=== PATIENT | female | born 1970 | race Caucasian/White ===

== ENCOUNTER 2016-10-20 11:22 | Inpatient (IN) | payer OTHER ==
[~2016-10-20] VITALS: Ht 160 cm; Wt 72.4 kg
[2016-10-20] MEDS ORDERED: IV NORMAL SALINE 1,000ML 1,000 ML IV SCH (11:43)
[2016-10-20] MEDS ORDERED: HYDROmorphone PF 1 MG/ML DISP.SYRIN IV/SQ PRN (11:45)
[2016-10-20] MEDS ORDERED: 0.9 % SODIUM CHLORIDE 10 ML DISP.SYRIN. IV PRN (11:45)
--- NOTE | 2016-10-20 11:51 | PHYS DOC ---
Past History Past Medical History: No Pertinent History Past Surgical History: Other Additional Past Surgical Histo: surgeries on her foot Smoking: Cigarettes Alcohol Use: Occasionally Drug Use: None Adult General Chief Complaint Chief Complaint: ABDOMINAL PAIN [facility] This is a pleasant 46-year-old female with no major medical problems only prior surgeries on her foot who presents with left cervical quadrant epigastric abdominal pain. She's had episodes like this in the past but this episode that brought her to the hospital today's progressively worse. Typically is described as a sharp stabbing in the left upper or right upper quadrant. She' s been seen before and had an ultrasound of the right upper quadrant and within the last several weeks demonstrated no occult issues with her gallbladder to include cholelithiasis cholecystitis. She does not remember any trauma to her abdomen but the pain is described as sharp and stabbing left upper quadrant with mild radiation to the flank. It is worsened by food, position, breathing and direct pressure of the abdomen. She said this particular episode is a 10 of 10 when it started this morning is now presently a 4 of 10. It is worse when she lays down, worse when she presented. She denies any nausea, vomiting at this time she denies any diarrhea or UTI symptoms. She denies any night sweats, fever, weight loss with this particular episode. Although she has said that weight loss does occur with her prior bouts because she refuses to eat. She denies any headache, chest pain, travel outside the country recently. 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 It isn't immediate experience and she is actually stopped eating because it hurt so much. abdominal pain differential includes but not limited to ectopic , UTI, pyonephritis, cholecystitis, cholelithiasis, pancreatitis, appendicitis, small bowel obstruction, large bowel obstruction, diverticulosis, Diverticulum, intussusception, volvulus, irritable bowel disease, Crohn's or ulcerative colitis,, Review of Systems Review of Systems Constitutional: Denies fever or chills [] Eyes: Denies change in visual acuity, redness, or eye pain [] HENT: Denies nasal congestion or sore throat [] Respiratory: Denies cough or shortness of breath [] Cardiovascular: No additional information not addressed in HPI [] GI: Her main complaint is abdominal pain without nausea vomiting bloody stools or diarrhea. : Denies dysuria or hematuria [] Musculoskeletal: Denies back pain or joint pain [] Integument: Denies rash or skin lesions [] Neurologic: Denies headache, focal weakness or sensory changes [] Endocrine: Denies polyuria or polydipsia [] Current Medications Current Medications Current Medications Medications (Trade) Dose Ordered Sig/Feliberto Start Time Stop Time Status Last Admin Dose Admin Hydromorphone HCl (Dilaudid) 1 mg PRN Q15MIN PRN 10/20/16 11:45 10/21/16 11:44 UNV Ondansetron HCl (Zofran) 4 mg 1X ONCE 10/20/16 11:45 10/20/16 11:46 UNV Sodium Chloride (Normal Saline Flush) 10 ml QSHIFT PRN 10/20/16 11:45 UNV Allergies Allergies Allergies Coded Allergies Type Severity Reaction Last Updated Verified nickel Allergy Unknown 10/20/16 Yes Physical Exam Physical Exam her vital signs been reviewed and within normal limits was been recorded on the chart. Constitutional: Well developed, well nourished, no acute distress, non-toxic appearance. [] HENT: Normocephalic, atraumatic, bilateral external ears normal, oropharynx moist, no oral exudates, nose normal. [] Eyes: PERRLA, EOMI, conjunctiva normal, no discharge. [] Neck: Normal range of motion, no tenderness, supple, no stridor. [] Cardiovascular:Heart rate regular rhythm, no murmur [] Lungs & Thorax: Bilateral breath sounds clear to auscultation [] Abdomen: Tenderness to palpation of the left upper quadrant with some voluntary guarding no rebound or masses. There is no Bradley's or McBurney's or Bradley's point tenderness palpation. No CVA tenderness to palpation as well Skin: Warm, dry, no erythema, no rash. [] Back: No tenderness, Extremities: No tenderness, no cyanosis, no clubbing, ROM intact, no edema. [] Neurologic: Alert and oriented X 3, normal motor function, normal sensory function, no focal deficits noted. [] Psychologic: Affect normal, judgement normal, mood normal. She is mildly anxious Current Patient Data Vital Signs Vital Signs Date Time Temp Pulse Resp B/P (MAP) Pulse Ox O2 Delivery O2 Flow Rate FiO2 8/8/17 11:35 98.2 77 20 99 Room Air Vital Signs Date Time Temp Pulse Resp B/P (MAP) Pulse Ox O2 Delivery O2 Flow Rate FiO2 10/20/16 12:16 20 99 10/20/16 11:35 98.2 77 Room Air EKG EKG [] KG time 12:17 PM serous 10/20/[address] Bustamante demonstrates normal sinus rhythm heart rate of 69 Arrival 188 which is normal QRS width of 80 which is normal QTC 424 to his normal is a normal sinus rhythm normal EKG with no ST segment or T-wave inversions considered with acute cord ischemia there is somewhat low voltage in the inferior leads. Radiology/Procedures Radiology/Procedures [] IMAGING REPORT Signed PATIENT: ROSITA DUNN ACCOUNT: [id number] : 1970 LOCATION: ER AGE: 46 SEX: F EXAM STATUS: REG ER ORD. PHYSICIAN: FRANKLIN BUSTAMANTE MD REASON: upper quadrant abdominal pain PROCEDURE: CT ABD PELV W/ IV CONTRST ONLY CT scan of the abdomen and pelvis with contrast 10/20/2016 Clinical history: Abdominal pain for 3 hours. Technique: After the intravenous administration of 75 cc of Omnipaque 300, contiguous, 5 mm axial sections were obtained through the abdomen and pelvis. One or more of the following individualized dose reduction techniques were utilized for this study: 1. Automated exposure control. 2. Adjustment of the mA and/or kV according to patient size. 3. Use of iterative reconstruction technique. Findings: No previous imaging studies are available for comparison. Images through the lung bases demonstrate minimal dependent subsegmental atelectasis bilaterally. A 2.8 cm low-attenuation lesion is seen involving the dome of the liver which may represent a hepatic cyst or hemangioma. The spleen, pancreas, adrenal glands and kidneys are within normal limits. The abdominal aorta tapers normally. The gallbladder is contracted. No free fluid or free air is seen within the abdomen. There is no evidence of bowel obstruction. The appendix is well visualized and is within normal limits. Images through the pelvis demonstrate the urinary bladder distended with urine. Calcifications are seen within the pelvis consistent with phleboliths. A 2.6 cm oval-shaped heterogeneous area is seen in the left adnexa which may represent a hemorrhagic cyst. No free fluid is seen. Minimal S shaped curvature of the thoracic lumbar spine is noted. Degenerative changes are seen along the lower thoracic and mid and lower lumbar spine. Impression: Probable 2.5 cm hemorrhagic cyst within the left ovary. Course & Med Decision Making Course & Med Decision Making Pertinent Labs and Imaging studies reviewed. (See chart for details) []patient has received pain meds, fluids, and IV has been completed. 12:20 pm patient pain improved only slightly. Patient tells me that their symptoms given during CC are improved. We reviewed labs and radiology reports with patient and any family at bedside. She is still having several pain despite getting antiemetics and pain meds here in the emergency department. CT scan abdomen and pelvis does not reveal any specific bowel inflammation, perforation or diverticulitis. She does have a significant left ovarian cyst. There is no free fluid in the abdomen. We discussed possible disposition home with oral medications or admission to the hospital given how much pain she is in. Because this is a more severe episode should've explains the past she would prefer to be admitted to the hospital. I will make arrangements for outpatient GI evaluation if possible for an EGD. I will this patient admitted to the hospital for antinausea medications fluids and analgesics. She is fine with this plan. my abdominal pain differential includes but not limited to ectopic , UTI, pyonephritis, cholecystitis, cholelithiasis, pancreatitis, appendicitis, small bowel obstruction, large bowel obstruction, diverticulosis, Diverticulum, intussusception, volvulus, irritable bowel disease, Crohn's or ulcerative colitis,, Psychotherapist note: Internal medicine Psychotherapist called at of the service Dr. Narayanan Consult called back at paged at 12:43, returned call at 12:43 Discussed the case I presented and they agreed with admission. Time of acceptance 12:43 Impression: Possible gastric or lower channel ulcer given her propensity of increased pain with food. Disposition: [facility] or the hospital for pain management and possible GI evaluation. Britt Disclaimer Britt Disclaimer This chart was dictated in whole or in part using Voice Recognition software in a busy, high-work load, and often noisy Emergency Department environment. It may contain unintended and wholly unrecognized errors or omissions. Departure Departure: Impression: Primary Impression: Abdominal pain Disposition: ADMITTED INPATIENT Admitting Physician: Toshia Narayanan Condition: GUARDED Referrals: SIMONE PHELPS DO (PCP) FRANKLIN BUSTAMANTE MD Oct 20, 2016 11:51
[2016-10-20] MEDS ORDERED: IOHEXOL 300 MG/ML 75 ML VIAL. IV ONE (12:00)
[2016-10-20] MEDS ORDERED: ONDANSETRON PF 4 MG/2 ML VIAL. IV ONE (12:00)
[2016-10-20 12:01] LABS: BASO # 0.1 x10^3/uL (0.0-0.2); BASO % 1 % (0-3); EOS # 0.3 x10^3/uL (0.0-0.7); EOS % 3 % (0-3); HEMATOCRIT 39.9 % (36.0-47.0); HEMOGLOBIN 13.6 g/dL (12.0-15.5); LYMPH # 2.5 x10^3/uL (1.0-4.8); LYMPH % 29 % (24-48); MEAN CORPUSCULAR HEMOGLOBIN 29 pg (25-35); MEAN CORPUSCULAR HGB CONC 34 g/dL (31-37); MEAN CORPUSCULAR VOLUME 86 fL (79-100); MONO # 0.8 x10^3/uL (0.0-1.1); MONO % 9 % (0-9); NEUT # 5.1 x10^3uL (1.8-7.7); NEUT % 58 % (31-73); PLATELET COUNT 201 x10^3/uL (140-400); RED BLOOD COUNT 4.61 x10^6/uL (3.50-5.40); RED CELL DISTRIBUTION WIDTH 13.2 % (11.5-14.5); WHITE BLOOD COUNT 8.7 x10^3/uL (4.0-11.0)
[2016-10-20 12:15] LABS: ALBUMIN 3.9 g/dL (3.4-5.0); CALCIUM 8.8 mg/dL (8.5-10.1); DIRECT BILIRUBIN 0.1 mg/dL (0.0-0.2); GFR 60.2; POTASSIUM 4.1 mmol/L (3.5-5.1); TOTAL BILIRUBIN 0.3 mg/dL (0.2-1.0); TOTAL PROTEIN 7.1 g/dL (6.4-8.2)
--- NOTE | 2016-10-20 12:28 | RAD ---
CT scan of the abdomen and pelvis with contrast 10/20/2016 Clinical history: Abdominal pain for 3 hours. Technique: After the intravenous administration of 75 cc of Omnipaque 300, contiguous, 5 mm axial sections were obtained through the abdomen and pelvis. One or more of the following individualized dose reduction techniques were utilized for this study: 1. Automated exposure control. 2. Adjustment of the mA and/or kV according to patient size. 3. Use of iterative reconstruction technique. Findings: No previous imaging studies are available for comparison. Images through the lung bases demonstrate minimal dependent subsegmental atelectasis bilaterally. A 2.8 cm low-attenuation lesion is seen involving the dome of the liver which may represent a hepatic cyst or hemangioma. The spleen, pancreas, adrenal glands and kidneys are within normal limits. The abdominal aorta tapers normally. The gallbladder is contracted. No free fluid or free air is seen within the abdomen. There is no evidence of bowel obstruction. The appendix is well visualized and is within normal limits. Images through the pelvis demonstrate the urinary bladder distended with urine. Calcifications are seen within the pelvis consistent with phleboliths. A 2.6 cm oval-shaped heterogeneous area is seen in the left adnexa which may represent a hemorrhagic cyst. No free fluid is seen. Minimal S shaped curvature of the thoracic lumbar spine is noted. Degenerative changes are seen along the lower thoracic and mid and lower lumbar spine. Impression: Probable 2.5 cm hemorrhagic cyst within the left ovary.
[2016-10-20] MEDS ORDERED: PANTOPRAZOLE IV PUSH 40 MG VIAL. IVP ONE (13:00)
[2016-10-20] MEDS ORDERED: LIDO:MAALOX 1:1 20 ML SINGLE DOSE PO ONE (13:00)
[2016-10-20 13:09] LABS: CLARITY,URINE CLEAR; COLOR,URINE STRAW; GLUCOSE,URINE NEG (NEG)
[2016-10-20 13:10] LABS: BACTERIA,URINE 0 /HPF (0-FEW); BILIRUBIN,URINE NEG (NEG); NITRITE,URINE NEG (NEG); RBC,URINE 0 /HPF (0-2); SQUAMOUS EPITHELIAL CELL,UR OCC /LPF; UROBILINOGEN,URINE 0.2 mg/dL (0.2 mg/dL); WBC,URINE 0 /HPF (0-4)
--- NOTE | 2016-10-20 13:27 | EKG ---
[address] [address] Test Date: 2016-10-20 Test Time: 12:17:35 Pat Name: ROSITA DUNN Department: Room: 105 A Gender: F Life Specialist: SRI : 1970 Requested By: FRANKLIN BUSTAMANTE Order Number: [id number] Reading MD: Yrn West Measurements Intervals [place] Rate: 69 P: 52 TN: 188 QRS: 59 QRSD: 80 T: 31 QT: 394 QTc: 424 Interpretive Statements SINUS RHYTHM LOW LIMB LEAD VOLTAGE RI6.01 Unconfirmed report No previous ECG available for comparison Electronically Signed On 10-26-2016 9:30:38 CDT by Yrn West
[2016-10-20] MEDS: fentaNYL PF 100 MCG/2 ML VIAL IV PRN ×3 (13:51→21:55)
[2016-10-20 13:54] VITALS: BP 131/75
[2016-10-20 14:17] VITALS: BP 131/75
[2016-10-20] MEDS: ONDANSETRON PF 4 MG/2 ML VIAL. IV PRN ×2 (14:31→21:55)
[2016-10-20] MEDS: IV NORMAL SALINE 1,000ML 1,000 ML IV SCH ×2 (14:38→20:20)
[2016-10-20] MEDS ORDERED: PROMETHAZINE 12.5 MG in IV NORMAL SALINE 50ML 50 ML IV PRN (16:30)
[2016-10-20] MEDS ORDERED: methylPREDNISolone SOD SUCC PF 40 MG/ML VIAL. IV ONE (16:45)
[2016-10-20] MEDS ORDERED: DICY10CA53 PO (17:52)
[2016-10-20] MEDS ORDERED: METH18TA5 PO (17:52)
[2016-10-20] MEDS ORDERED: MONT10TA9 PO (17:52)
[2016-10-20 18:56] VITALS: BP 103/62
[2016-10-20] MEDS: PANTOPRAZOLE IV PUSH 40 MG VIAL. IVP SCH (20:20)
[2016-10-20] MEDS ORDERED: MONTELUKAST 10 MG TABLET. PO SCH (21:00)
[2016-10-20 22:51] VITALS: BP 91/50
--- NOTE | 2016-10-21 01:16 | ACF ---
Admission Criteria Forms ABDOMINAL PAIN Clinical Indications for Admission to Inpatient Care (Place 'X' for any and all applicable criteria): Admission is indicated for ANY ONE of the following(1)(2)(3)(4)(5): [X]I. Inpatient admission required rather than observation care (Also use Abdominal Pain: Observation Care, as appropriate) because of ANY ONE of the following: [X]a) Severe pain requiring acute inpatient management [ ]b) Identification of etiology/finding that requires inpatient care (eg, aortic dissection, free air) [ ]c) Absent bowel sounds with complete ileus(6) [ ]d) Suspected toxic megacolon [ ]e) Severe electrolyte abnormalities requiring inpatient care [ ]f) High fever or infection requiring inpatient admission as indicated by ANY ONE of following(7)(8): [ ] i) Appropriate outpatient or observational care antimicrobial treatment unavailable, not effective, or not feasible [ ] ii) Documented bacteremia [ ] iii) Temperature > 104.9 degrees F (oral) [ ] iv) T >103.1 F (oral) or < 96.8 F(rectal) that does not respond to all emergency treatment measures [ ]g) Signs of intestinal obstruction [B] [ ]h) Hemodynamic instability [ ]i) IV fluid to replace significant ongoing losses (greater than 3 L/m2 per day) (12)(13) [ ]j) Percutaneous or open drainage (eg, abscess, biliary tract ) procedures [ ]k) Parenteral nutrition regimen that must be implemented on inpatient basis [ ]l) Other condition,treatment or monitoring requiring inpatient admission. [ ]II. Peritoneal signs present [ ]III. Surgery needed that cannot be performed on an ambulatory basis. [ ]IV. Evaluation requires patient to not eat or drink for extended period ( eg, more than 24 hours). [ ]V. Contraindications and/or Inappropriate clinical situations for Observational Care in patients with abdominal pain, when ANY ONE of the following is required: [ ]a) Thorough evaluation is required to prevent catastrophic events due to delays in diagnosing (e.g.Mesenteric ischemia) 1,3 [ ]b) Patient with severe pathology or with chronic symptoms unlikely to improve in the ED stay (3) [ ]. General contraindications and/or Inappropriate clinical situations for Observational Care in patients with abdominal pain, when ANY ONE of the following is required: [ ]a) Prediction of prolongation of LOS based on ANY ONE of the following may be considered as a contraindication for observational care 2, 3, 4, 5, 6, 7, 8, 9, 10, 11 [ ]i) Age > 65 yrs. [ ]ii) Patient arriving by ambulance [ ]iii) Patient with high acuity [ ]iv) Patient requiring vital sign monitoring [ ]v) Patient on IV medication [ ]b) Systolic blood pressures 180mmHg 3,12 [ ]c) Patient with altered mental status including delirium and other alteration of consciousness, (3) [ ]d) Patient whose discharge disposition will be to a fdc home or rehabilitation home should not be managed in Emergency Department Observation Unit. CMS rule requires 3 days hospital stay before such placement.3,13 [ ]e) Patient with failure to thrive due to broad array of etiologies 3,16,17 [ ]f) Inability to ambulate 3,14 Extended stay beyond goal length of stay may be needed for(2)(3): [ ]a) Persistent abdominal pain with suspected intra-abdominal process [ ]b) Diagnosed condition requiring continued stay (e.g., pancreatitis, complicated diverticulitis) [ ]c) Surgery (e.g., colectomy) The original [facility] content created by [employer] has been revised. The portions of the content which have been revised are identified through the use of italic text or in bold, and [facility] has neither reviewed nor approved the modified material.All other unmodified content is copyright [facility] [facility]. Please see references footnoted in the original [facility] [facility] edition 2016 Admission Criteria Met?: Yes CHELY MARTINEZ Oct 21, 2016 01:16
[2016-10-21] MEDS: IV NORMAL SALINE 1,000ML 1,000 ML IV SCH (04:33)
[2016-10-21] MEDS: ONDANSETRON PF 4 MG/2 ML VIAL. IV PRN ×2 (06:18→08:49)
[2016-10-21] MEDS: fentaNYL PF 100 MCG/2 ML VIAL IV PRN (06:19)
[2016-10-21 06:20] VITALS: BP 100/56
[2016-10-21 06:31] LABS: BASO % 0 % (0-3); EOS % 0 % (0-3); HEMATOCRIT 35.9 % (36.0-47.0); HEMOGLOBIN 12.1 g/dL (12.0-15.5); LYMPH # 0.9 x10^3/uL (1.0-4.8); LYMPH % 8 % (24-48); MEAN CORPUSCULAR HEMOGLOBIN 29 pg (25-35); MEAN CORPUSCULAR HGB CONC 34 g/dL (31-37); MEAN CORPUSCULAR VOLUME 87 fL (79-100); MONO # 0.3 x10^3/uL (0.0-1.1); MONO % 3 % (0-9); NEUT # 10.5 x10^3uL (1.8-7.7); NEUT % 89 % (31-73); PLATELET COUNT 182 x10^3/uL (140-400); RED BLOOD COUNT 4.12 x10^6/uL (3.50-5.40); RED CELL DISTRIBUTION WIDTH 13.1 % (11.5-14.5); WHITE BLOOD COUNT 11.7 x10^3/uL (4.0-11.0)
[2016-10-21 06:46] LABS: ALBUMIN 3.1 g/dL (3.4-5.0); ALBUMIN/GLOBULIN RATIO 1.1 (1.0-1.7); CREATININE 0.9 mg/dL (0.6-1.0); POTASSIUM 4.5 mmol/L (3.5-5.1); TOTAL BILIRUBIN 0.3 mg/dL (0.2-1.0)
[2016-10-21] MEDS: PANTOPRAZOLE IV PUSH 40 MG VIAL. IVP SCH (09:00)
--- NOTE | 2016-10-21 09:13 | HP ---
ADMIT DATE: 10/20/2016 REASON FOR ADMISSION: Acute abdominal pain visit. 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 She was in a meeting, which she states with 1200 others shoulders and developed acute pain in the left upper quadrant. There were no appointments available at [place] and she was seen in Urgent Care at [place] was sent over to the Emergency Room. She denies any type of triggers as far as today goes. This has occurred before and had not had any type of workup. She has been told in the past that she may have irritable, that it is menopause and other things. She is concerned that it may be some type of inflammatory bowel disease. It does particularly get worse with food and so does not eat at the times that she has had this pain. She has tried vitamins and probiotics. She has also had intermittently bloody stools. PAST MEDICAL HISTORY: ADD and some allergic-type issues. MEDICATIONS: Singulair and Concerta. Also has tried in the past, Bentyl, Mobic, Prilosec for this problem has not particularly helped. ALLERGIES: NICKEL. PAST SURGICAL HISTORY: Four to give foot surgeries, left wrist surgery. FAMILY HISTORY: Lung cancer, kidney cancer and heart attacks. HABITS: Smokes 3-5 cigarettes a day, but also goes days without smoking, drinks 1 cup of coffee a day, occasional alcohol. SOCIAL HISTORY: She is single. She has had deployment to [place] and [place]. She was exposed to some chemicals hazards in [place], but does not relate this problem with that. She is , has 3 children. REVIEW OF SYSTEMS: Does report some intermittent ulcerations in her mouth and around the anus, also intermittent abdominal pain, itching all over her body. No shortness of breath, no fever, no sore throat. No pelvic issues. Denies discharge. Positive for loose bloody stools at times. OBJECTIVE: VITAL SIGNS: Blood pressure is 131/75, temperature 97.7, pulse 67, respirations 20, O2 sat is 98% on room air. GENERAL: A 46-year-old in no acute distress. Also, height 63 inches, weight 159.56 pounds. The patient's hearing is normal. HEENT: Her eyes are clear. Nose is patent. Throat was clear. Could not appreciate any type of aphthous ulcers. LUNGS: Clear to auscultation. CARDIOVASCULAR: Regular rhythm and rate. ABDOMEN: Soft, bowel sounds are positive. She has exquisite deep tenderness to the slight left of the mid epigastric area. No masses were palpated. EXTREMITIES: Without edema. SKIN: Could not appreciate rashes. She does have a couple little scratches around the anal area and some dormant external hemorrhoids, but nothing of consequence. CT of the abdomen is negative except for 2.5 cyst within the left ovary. Gallbladder, pancreas appendix, adrenal glands, kidneys all appear normal. LABORATORY DATA: Initial blood work, CBC normal. Sed rate normal. Vitamin D is only 26. Troponins negative. Initial CMP is negative. C-reactive protein is normal. Urine negative. HCG negative. ASSESSMENT: 1. Abdominal pain, unknown etiology. I have to consider gastric or duodenal ulcers. 2. History of bloody stools. 3. Attention deficit disorder. 4. Appointment in [place]. PLAN: Upper GI with small bowel followthrough and make arrangements for an endoscopy as well as colonoscopy. We will go ahead and give first a low dose of steroids and a proton pump inhibitor and she is on pain medication. SKYLAR OSBORN DO DR: EMILY/chito JOB#: [id number] / [id number]
[2016-10-21] MEDS ORDERED: MORPHINE SULFATE 2 MG/ML DISP.SYRIN. IV ONE (10:15)
--- NOTE | 2016-10-21 13:17 | RAD ---
Double contrast upper GI study to include a small bowel follow-through study 10/21/2016 Clinical history: Persistent mid epigastric and left upper quadrant abdominal pain. Technique: A double contrast upper GI study was performed under fluoroscopic control. This was continued as a small bowel follow-through study which was performed under radiographic and intermittent fluoroscopic control. The total fluoroscopic time for both studies is 3.6 minutes. 19 digital spot radiographs were obtained. Findings: Comparison is made to patient's CT scan of abdomen and pelvis dated 10/20/2016. An AP digital radiograph of the abdomen/pelvis was obtained as a gear shaper. This demonstrates a nonobstructive bowel gas pattern. A moderate amount stool is seen throughout the colon. Calcifications are seen within the pelvis consistent with phleboliths. Degenerative changes are seen involving the mid and lower lumbar spine. The mucosal pattern of the esophagus, stomach and duodenum is within normal limits. Esophageal motility is within normal limits. There is a very small sliding hiatal hernia. [id number] gastroesophageal reflux is seen to the level of the mid thoracic esophagus. The mucosal pattern of the duodenum, jejunum, ileum and terminal ileum is within normal limits. The cecum is in its normal location within the right lower quadrant of the abdomen. The small bowel transit time is within normal limits. No extrinsic mass effect upon the small bowel is seen. Impression: 1. Small sliding hiatal hernia. Mild to moderate gastroesophageal reflux. 2. Otherwise negative study.
[2016-10-21 13:35] VITALS: BP 114/69
[2016-10-21] MEDS ORDERED: PANT40TA3 PO (13:41)
--- NOTE | 2016-10-21 16:35 | PDOC3 ---
Discharge Summary Visit Information Date of Admission: Oct 20, 2016 Date of Discharge: Oct 21, 2016 Final Diagnosis Problems Medical Problems: (1) Abdominal pain Status: Acute . Abdominal pain, unknown etiology. 2. History of bloody stools. 3. Attention deficit disorder. 4. History of deployment in [place] and [place]. 5. GERD 6.hiatal hernia 7. vitamin D deficiency Problems: Brief Hospital Course Allergies Allergies Coded Allergies Type Severity Reaction Last Updated Verified nickel Allergy Unknown 10/20/16 Yes Vital Signs Vital Signs Date Time Temp Pulse Resp B/P (MAP) Pulse Ox O2 Delivery O2 Flow Rate FiO2 10/21/16 13:35 97.7 66 20 114/69 (84) 99 Room Air 10/20/16 14:17 98.0 Lab Results Laboratory Tests Test 10/20/16 11:48 10/20/16 12:48 10/20/16 12:58 10/20/16 16:35 White Blood Count 8.7 x10^3/uL (4.0-11.0) Red Blood Count 4.61 x10^6/uL (3.50-5.40) Hemoglobin 13.6 g/dL (12.0-15.5) Hematocrit 39.9 % (36.0-47.0) Mean Corpuscular Volume 86 fL (79-100) Mean Corpuscular Hemoglobin 29 pg (25-35) Mean Corpuscular Hemoglobin Concent 34 g/dL (31-37) Red Cell Distribution Width 13.2 % (11.5-14.5) Platelet Count 201 x10^3/uL (140-400) Neutrophils (%) (Auto) 58 % (31-73) Lymphocytes (%) (Auto) 29 % (24-48) Monocytes (%) (Auto) 9 % (0-9) Eosinophils (%) (Auto) 3 % (0-3) Basophils (%) (Auto) 1 % (0-3) Neutrophils # (Auto) 5.1 x10^3uL (1.8-7.7) Lymphocytes # (Auto) 2.5 x10^3/uL (1.0-4.8) Monocytes # (Auto) 0.8 x10^3/uL (0.0-1.1) Eosinophils # (Auto) 0.3 x10^3/uL (0.0-0.7) Basophils # (Auto) 0.1 x10^3/uL (0.0-0.2) Sodium Level 140 mmol/L (136-145) Potassium Level 4.1 mmol/L (3.5-5.1) Chloride Level 105 mmol/L (98-107) Carbon Dioxide Level 28 mmol/L (21-32) Anion Gap 7 (6-14) Blood Urea Nitrogen 18 mg/dL (7-20) Creatinine 1.0 mg/dL (0.6-1.0) Estimated GFR (Cockcroft-Gault) 60.2 Glucose Level 91 mg/dL (70-99) Calcium Level 8.8 mg/dL (8.5-10.1) Total Bilirubin 0.3 mg/dL (0.2-1.0) Direct Bilirubin 0.1 mg/dL (0.0-0.2) Aspartate Amino Transf (AST/SGOT) 29 U/L (15-37) Alanine Aminotransferase (ALT/SGPT) 21 U/L (14-59) Alkaline Phosphatase 56 U/L (46-116) Troponin I Quantitative < 0.017 ng/mL (0-0.055) Total Protein 7.1 g/dL (6.4-8.2) Albumin 3.9 g/dL (3.4-5.0) Lipase 270 U/L (73-393) Urine Collection Type Unknown Urine Color Straw Urine Clarity Clear Urine pH 7.5 Urine Specific [place] 1.010 Urine Protein Neg (NEG-TRACE) Urine Glucose (UA) Neg mg/dL (NEG) Urine Ketones (Stick) Neg mg/dL (NEG) Urine Blood Neg (NEG) Urine Nitrite Neg (NEG) Urine Bilirubin Neg (NEG) Urine Urobilinogen Dipstick 0.2 mg/dL (0.2 mg/dL) Urine Leukocyte Esterase Neg (NEG) Urine RBC 0 /HPF (0-2) Urine WBC 0 /HPF (0-4) Urine Squamous Epithelial Cells Occ /LPF Urine Bacteria 0 /HPF (0-FEW) Bedside Urine HCG, Qualitative hcg negative (Negative) Erythrocyte Sedimentation Rate 3 (0-25) Iron Level 62 ug/dL (50-170) Total Iron Binding Capacity 303 ug/dL (250-450) Iron Saturation 20 % (15-34) Ferritin 25 ng/mL (8-252) C-Reactive Protein 0.6 mg/L (0-3.3) Vitamin B12 Level 622 pg/mL (247-911) 25-Hydroxy Vitamin D Total 26.0 ng/mL (30.0-100.0) Thyroid Stimulating Hormone (TSH) 1.435 uIU/mL (0.358-3.740) Test 10/21/16 06:11 White Blood Count 11.7 x10^3/uL (4.0-11.0) Red Blood Count 4.12 x10^6/uL (3.50-5.40) Hemoglobin 12.1 g/dL (12.0-15.5) Hematocrit 35.9 % (36.0-47.0) Mean Corpuscular Volume 87 fL (79-100) Mean Corpuscular Hemoglobin 29 pg (25-35) Mean Corpuscular Hemoglobin Concent 34 g/dL (31-37) Red Cell Distribution Width 13.1 % (11.5-14.5) Platelet Count 182 x10^3/uL (140-400) Neutrophils (%) (Auto) 89 % (31-73) Lymphocytes (%) (Auto) 8 % (24-48) Monocytes (%) (Auto) 3 % (0-9) Eosinophils (%) (Auto) 0 % (0-3) Basophils (%) (Auto) 0 % (0-3) Neutrophils # (Auto) 10.5 x10^3uL (1.8-7.7) Lymphocytes # (Auto) 0.9 x10^3/uL (1.0-4.8) Monocytes # (Auto) 0.3 x10^3/uL (0.0-1.1) Eosinophils # (Auto) 0.0 x10^3/uL (0.0-0.7) Basophils # (Auto) 0.0 x10^3/uL (0.0-0.2) Sodium Level 142 mmol/L (136-145) Potassium Level 4.5 mmol/L (3.5-5.1) Chloride Level 111 mmol/L (98-107) Carbon Dioxide Level 25 mmol/L (21-32) Anion Gap 6 (6-14) Blood Urea Nitrogen 11 mg/dL (7-20) Creatinine 0.9 mg/dL (0.6-1.0) Estimated GFR (Cockcroft-Gault) 68.0 BUN/Creatinine Ratio 12 (6-20) Glucose Level 143 mg/dL (70-99) Calcium Level 8.0 mg/dL (8.5-10.1) Total Bilirubin 0.3 mg/dL (0.2-1.0) Aspartate Amino Transf (AST/SGOT) 22 U/L (15-37) Alanine Aminotransferase (ALT/SGPT) 18 U/L (14-59) Alkaline Phosphatase 47 U/L (46-116) Total Protein 6.0 g/dL (6.4-8.2) Albumin 3.1 g/dL (3.4-5.0) Albumin/Globulin Ratio 1.1 (1.0-1.7) Brief Hospital Course Ms. Thomson is a 46 old ACTIVE [employer] WHO PRESENTED TO THE ER WITH SEVERE ABDOMINAL PAIN, LEFT UPPER QUADRANT WITH ASSOCIATED NAUSEA. SHE HAD AN UGI WITH SBFT SHOWING A SMALL HIATAL HERNIA AND GERD AND MODERATE STOOL. SHE WAS TREATED WITH PAIN MEDICATION AND PROTONIX AND ZOFRAN. BLOOD WORK-UP WAS NEGATIVE EXCEPT FOR VITAMIN D DEFICIENCY.SHE WILL STILL NEED AN EGD AND A COLONOSCOPY AN OUTPATIENT. SHE WAS SENT HOME ON ZOFRAN, PROTONIX AND HYDROCODONE 5/325 # 45. Discharge Information Condition at Discharge: Improved Disposition/Orders: D/C to Home Dischare Medications Current Medications Hydromorphone HCl (Dilaudid) 1 mg PRN Q15MIN PRN IV/SQ PAIN GREATER THAN 3/10 Last administered on 10/20/16 12:16; Start 10/20/16 at 11:45; Stop 10/21/16 at 11: 44; Status DC Sodium Chloride 1,000 ml @ 1,000 mls/hr Q1H IV Last administered on 10/20/16 12:14; Start 10/20/16 at 11:43; Stop 10/20/16 at 12:42; Status DC Sodium Chloride (Normal Saline Flush) 10 ml QSHIFT PRN IV AFTER MEDS AND BLOOD DRAWS Last administered on 10/20/16 12:17; Start 10/20/16 at 11:45; Stop 10/21/16 at 14:49; Status DC Ondansetron HCl (Zofran) 4 mg 1X ONCE IV Last administered on 10/20/16 12:15; Start 10/20/16 at 12:00; Stop 10/20/16 at 12:01; Status DC Iohexol (Omnipaque 300 Mg/ml) 75 ml 1X ONCE IV Last administered on 10/20/16 11:57; Start 10/20/16 at 12:00; Stop 10/20/16 at 12:01; Status DC Ondansetron HCl (Zofran) 4 mg PRN Q4HRS PRN IV NAUSEA/VOMITING Last administered on 10/21/16 08:49; Start 10/20/16 at 13:00; Stop 10/21/16 at 12:59; Status DC Fentanyl Citrate (Fentanyl 2ml Vial) 50 mcg PRN Q1HR PRN IV PAIN Last administered on 10/21/16 06:19; Start 10/20/16 at 13:00; Stop 10/21/16 at 12:59; Status DC Sodium Chloride 1,000 ml @ 125 mls/hr Q8H IV Last administered on 10/21/16 04: 33; Start 10/20/16 at 12:50; Stop 10/21/16 at 12:49; Status DC Pantoprazole Sodium (Protonix Vial) 40 mg 1X ONCE IVP Last administered on 10/20 13:15; Start 10/20/16 at 13:00; Stop 10/20/16 at 13:01; Status DC Multi-Ingredient Mouthwash/Gargle (Gi Cocktail) 20 ml 1X ONCE PO Last administered on 10/20/16 13:00; Start 10/20/16 at 13:00; Stop 10/20/16 at 13:01; Status DC Promethazine HCl 12.5 mg/Sodium Chloride 50.5 ml @ 101 mls/hr PRN Q6HRS PRN IV NAUSEA/VOMITING Last administered on 10/20/16 17:02; Start 10/20/16 at 16:30; Stop 10/21/16 at 14:49; Status DC Methylprednisolone Sodium Succinate (SOLU-Medrol 40MG VIAL) 60 mg 1X ONCE IV Last administered on 10/20/16 17:03; Start 10/20/16 at 16:45; Stop 10/20/16 at 16: 47; Status DC Pantoprazole Sodium (Protonix Vial) 40 mg BID IVP Last administered on 09:00; Start 10/20/16 at 21:00; Stop 10/21/16 at 14:49; Status DC Montelukast Sodium (Singulair) 10 mg HS PO Last administered on 10/20/16 20:20 ; Start 10/20/16 at 21:00; Stop 10/21/16 at 14:49; Status DC Morphine Sulfate (Morphine 2mg Syringe) 2 mg 1X ONCE IV Last administered on 10:11; Start 10/21/16 at 10:15; Stop 10/21/16 at 10:16; Status DC Active Scripts Active Protonix (Pantoprazole Sodium) 40 Mg Tablet.dr 1 Tab PO DAILY Reported Bentyl (Dicyclomine Hcl) 10 Mg Capsule 1 Cap PO TID PRN Concerta (Methylphenidate Hcl) 18 Mg Tab.er.24 1 Tab PO DAILY Montelukast Sodium Tablet (Montelukast Sodium) 10 Mg Tablet 1 Tab PO HS Patient Instructions Patient Instuctions PLEASE KEEP GI APPOINTMENT. MONITOR PAIN AND ANYTHING ASSOCIATED WITH IT . SMALL FREQUENT MEALS. DON'T EAT LATE AT NIGHT. SKYLAR OSBORN DO Oct 21, 2016 16:35
== END 2016-10-21 14:45 | disposition home or self-care (01) | DRG 392 ==
LOC: ER 11:22 → 1 SOUTH 13:14 → OBSVTOIN 15:08
PROVIDERS: ADMIT Family Medicine; ATTEND Family Medicine
DX: R10.12 Left upper quadrant pain (principal); E55.9 Vitamin D deficiency, unspecified; K21.9 Gastro-esophageal reflux disease without esophagitis; K44.9 Diaphragmatic hernia without obstruction or gangrene; F17.210 Nicotine dependence, cigarettes, uncomplicated; N83.202 Unspecified ovarian cyst, left side; Z80.1 Family history of malignant neoplasm of trachea, bronchus and lung; Z80.51 Family history of malignant neoplasm of kidney; Z82.49 Family history of ischemic heart disease and other diseases of the circulatory system; Z88.8 Allergy status to other drugs, medicaments and biological substances
CPT/HCPCS: 36415; 74177; 74249; 80048; 80053; 80076; 81001; 81025; 82306; 82607; 82728; 83540; 83550; 83690; 84443; 84484; 85027; 85651; 86140; 86677; 93005; 96361; 96374; 96375; 99406; C9113; G0378; G0379; J1170; J2270; J2405; J2550; J2920; J3010; Q9967; 99285-25; J7030

== ENCOUNTER 2016-11-12 10:52 | Emergency (ER) | payer OTHER ==
[~2016-11-12] VITALS: Ht 165.1 cm; Wt 70.3 kg
[~2016-11-12 10:52] MED LIST: DICY10CA53 PO; METH18TA5 PO; MONT10TA9 PO; PANT40TA3 PO
[2016-11-12 11:24] LABS: BASO # 0.1 x10^3/uL (0.0-0.2); BASO % 1 % (0-3); EOS # 0.4 x10^3/uL (0.0-0.7); EOS % 5 % (0-3); HEMATOCRIT 39.5 % (36.0-47.0); HEMOGLOBIN 13.3 g/dL (12.0-15.5); LYMPH # 2.4 x10^3/uL (1.0-4.8); LYMPH % 30 % (24-48); MEAN CORPUSCULAR HEMOGLOBIN 29 pg (25-35); MEAN CORPUSCULAR HGB CONC 34 g/dL (31-37); MEAN CORPUSCULAR VOLUME 86 fL (79-100); MONO # 0.8 x10^3/uL (0.0-1.1); MONO % 10 % (0-9); NEUT # 4.2 x10^3uL (1.8-7.7); NEUT % 54 % (31-73); PLATELET COUNT 228 x10^3/uL (140-400); WHITE BLOOD COUNT 7.8 x10^3/uL (4.0-11.0)
[2016-11-12 11:34] LABS: ALBUMIN 3.8 g/dL (3.4-5.0); ALBUMIN/GLOBULIN RATIO 1.3 (1.0-1.7); CALCIUM 8.7 mg/dL (8.5-10.1); CREATININE 0.9 mg/dL (0.6-1.0); POTASSIUM 4.1 mmol/L (3.5-5.1); PREG TEST PT QUAL NEGATIVE (NEG); TOTAL BILIRUBIN 0.5 mg/dL (0.2-1.0); TOTAL PROTEIN 6.8 g/dL (6.4-8.2)
[2016-11-12] MEDS ORDERED: IV NORMAL SALINE 50ML 50 ML ONE (11:39)
[2016-11-12] MEDS ORDERED: PROMETHAZINE 25 MG/ML VIAL IV ONE (11:40)
[2016-11-12] MEDS ORDERED: FAMOTIDINE 20 MG/2 ML VIAL IVP ONE (11:45)
[2016-11-12] MEDS ORDERED: MORPHINE SULFATE 4 MG/ML DISP.SYRIN. IV ONE (11:45)
[2016-11-12] MEDS ORDERED: IV NORMAL SALINE 1,000ML 1,000 ML IV ONE (11:45)
[2016-11-12] MEDS ORDERED: IOHEXOL 300 MG/ML 75 ML VIAL. IV ONE (11:45)
[2016-11-12] MEDS ORDERED: PROMETHAZINE 12.5 MG in IV NORMAL SALINE 50ML 50 ML IV ONE (12:00)
--- NOTE | 2016-11-12 12:04 | ED.ADGEN ---
Past History Past Medical History: No Pertinent History Past Surgical History: Other Additional Past Surgical Histo: surgeries on her foot Smoking: Cigarettes Alcohol Use: None Drug Use: None Adult General Chief Complaint Chief Complaint Rectal bleeding HPI HPI Patient is a 46-year-old female with history of epigastric pain, peptic ulcer disease, hiatal hernia who presents with lower abdominal pain and cramping with bright red rectal bleeding. Symptom onset was approximately 3 hours prior to ED arrival. Patient reports lower abdominal cramping preceding S and bright red blood with clots per rectum. Patient states this was not mixed with stool. She denies dizziness lightheadedness palpitations, shortness of breath and upper abdominal pain. Patient has history of hemorrhoids but states this is different. Patient is not on anticoagulation or NSAIDs. No prior abdominal surgery. No other acute symptoms or complaints. The patient was scheduled for an EGD this afternoon, but did have to cancel due to her current symptoms. Patient is currently on a course of antibiotics for treatment of H. pylori [place] Review of Systems Review of Systems ROS as per HPI. Current Medications Current Medications Current Medications Medications (Trade) Dose Ordered Sig/Feliberto Start Time Stop Time Status Last Admin Dose Admin Famotidine (Pepcid) 20 mg 1X ONCE 11/12/16 11:45 11/12/16 11:46 DC 11/12/16 11:36 20 MG Iohexol (Omnipaque 300 Mg/ml) 75 ml 1X ONCE 11/12/16 11:45 11/12/16 11:46 DC 11/12/16 12:05 75 ML Morphine Sulfate (Morphine 4mg Syringe) 4 mg 1X ONCE 11/12/16 11:45 11/12/16 11:46 DC 11/12/16 11:45 4 MG Promethazine HCl (Phenergan) 25 mg STK-MED ONCE 11/12/16 11:40 11/12/16 11:41 DC Promethazine HCl 12.5 mg/Sodium Chloride 50.5 ml @ 101 mls/hr 1X ONCE 11/12/16 12:00 11/12/16 12:29 DC 11/12/16 11:46 101 MLS/HR Sodium Chloride 50 ml @ As Directed STK-MED ONCE 11/12/16 11:39 11/12/16 11:40 DC Allergies Allergies Allergies Coded Allergies Type Severity Reaction Last Updated Verified nickel Allergy Unknown 10/20/16 Yes Physical Exam Physical Exam Constitutional: Well developed, well nourished, no acute distress, non-toxic appearance. [] HENT: Normocephalic, atraumatic, bilateral external ears normal, oropharynx moist, no oral exudates, nose normal. [] Eyes: PERRLA, EOMI, conjunctiva normal, no discharge. [] Neck: Normal range of motion, no tenderness, supple, no stridor. [] Cardiovascular:Heart rate regular rhythm, no murmur [] Lungs & Thorax: Bilateral breath sounds clear to auscultation [] Abdomen: Bowel sounds normal, soft, or abdominal pain, increased bowel sounds. [ ] Skin: Warm, dry, no erythema, no rash. [] Back: No tenderness, no CVA tenderness. [] Extremities: No tenderness, no cyanosis, no clubbing, ROM intact, no edema. [] Neurologic: Alert and oriented X 3, normal motor function, normal sensory function, no focal deficits noted. [] Psychologic: Affect normal, judgement normal, mood normal. [] Current Patient Data Vital Signs Vital Signs Date Time Temp Pulse Resp B/P (MAP) Pulse Ox O2 Delivery O2 Flow Rate FiO2 11/12/16 13:37 97.9 64 18 120/70 (87) 99 Room Air Lab Results Laboratory Tests Test 11/12/16 11:09 White Blood Count 7.8 x10^3/uL (4.0-11.0) Red Blood Count 4.60 x10^6/uL (3.50-5.40) Hemoglobin 13.3 g/dL (12.0-15.5) Hematocrit 39.5 % (36.0-47.0) Mean Corpuscular Volume 86 fL (79-100) Mean Corpuscular Hemoglobin 29 pg (25-35) Mean Corpuscular Hemoglobin Concent 34 g/dL (31-37) Red Cell Distribution Width 13.0 % (11.5-14.5) Platelet Count 228 x10^3/uL (140-400) Neutrophils (%) (Auto) 54 % (31-73) Lymphocytes (%) (Auto) 30 % (24-48) Monocytes (%) (Auto) 10 % (0-9) H Eosinophils (%) (Auto) 5 % (0-3) H Basophils (%) (Auto) 1 % (0-3) Neutrophils # (Auto) 4.2 x10^3uL (1.8-7.7) Lymphocytes # (Auto) 2.4 x10^3/uL (1.0-4.8) Monocytes # (Auto) 0.8 x10^3/uL (0.0-1.1) Eosinophils # (Auto) 0.4 x10^3/uL (0.0-0.7) Basophils # (Auto) 0.1 x10^3/uL (0.0-0.2) Sodium Level 137 mmol/L (136-145) Potassium Level 4.1 mmol/L (3.5-5.1) Chloride Level 105 mmol/L (98-107) Carbon Dioxide Level 25 mmol/L (21-32) Anion Gap 7 (6-14) Blood Urea Nitrogen 10 mg/dL (7-20) Creatinine 0.9 mg/dL (0.6-1.0) Estimated GFR (Cockcroft-Gault) 68.0 BUN/Creatinine Ratio 11 (6-20) Glucose Level 89 mg/dL (70-99) Calcium Level 8.7 mg/dL (8.5-10.1) Total Bilirubin 0.5 mg/dL (0.2-1.0) Aspartate Amino Transferase (AST) 53 U/L (15-37) H Alanine Aminotransferase (ALT) 42 U/L (14-59) Alkaline Phosphatase 53 U/L (46-116) Total Protein 6.8 g/dL (6.4-8.2) Albumin 3.8 g/dL (3.4-5.0) Albumin/Globulin Ratio 1.3 (1.0-1.7) Lipase 348 U/L (73-393) Serum Test, Qualitative Negative (NEG) EKG EKG [] Radiology/Procedures Radiology/Procedures [CT abdomen pelvis:No acute abdominal process. ] Course & Med Decision Making Course & Med Decision Making Pertinent Labs and Imaging studies reviewed. (See chart for details) [No active rectal bleeding while in the ED. Vital Signs and maintained stable. Case reviewed with the patient's GI physician. Will schedule colonoscopy for outpatient.] Final Impression Final Impression [1. Bright red rectal bleeding 2. Abdominal pain] Problems: Dragon Disclaimer Dragon Disclaimer This electronic medical record was generated, in whole or in part, using a voice recognition dictation system. SCOTTY HENDRIX DO Nov 12, 2016 12:04
--- NOTE | 2016-11-12 12:19 | RAD ---
Exam performed: CT abdomen and pelvis with contrast. History: Lower abdominal pain and rectal bleeding. Date of service: 11/12/16. Comparison: CT abdomen pelvis from 10/20/16. Technique: Contiguous helical acquisitions are obtained through the abdomen and pelvis during intravenous administration of 75 cc of Omnipaque 300. Sagittal and coronal reformatted images are obtained and reviewed. Findings: The lung bases are clear. Visualized heart is normal. Low attenuating probable cyst or hemangioma in the subdiaphragmatic right hepatic lobe. The spleen, pancreas and gallbladder are normal. Both adrenal glands and bilateral kidneys are normal in size with symmetric excretion of contrast via both kidneys. There is no hydronephrosis or nephrolithiasis. The aorta is normal in caliber without aneurysm. No retroperitoneal or mesenteric lymphadenopathy. Extensive scattered stool is seen throughout the colon. Visualized appendix is normal. No inflammatory changes seen in the right lower quadrant. Urinary bladder is partially decompressed. The uterus is anteverted. Probable fibroid uterus. There is a right ovarian cyst probably physiological. No free fluid or pelvic collections are seen. Incidental pelvic phleboliths Interrogation of bone windows demonstrates no bony abnormality. Impression: 1. No acute intra-abdominal or pelvic process detected. 2. Diffuse scattered stool throughout the colon. Correlate clinically for constipation. 3. Right ovarian cyst probably physiological. PQRS Compliance Statement: One or more of the following individualized dose reduction techniques were utilized for this examination: 1. Automated exposure control 2. Adjustment of the mA and/or kV according to patient size 3. Use of iterative reconstruction technique
[2016-11-12 13:37] VITALS: BP 120/70
== END 2016-11-12 13:38 | disposition home or self-care (01) ==
LOC: ER 10:52
DX: K62.5 Hemorrhage of anus and rectum (principal); R10.30 Lower abdominal pain, unspecified; F17.210 Nicotine dependence, cigarettes, uncomplicated; Z87.11 Personal history of peptic ulcer disease; Z88.8 Allergy status to other drugs, medicaments and biological substances
CPT/HCPCS: 36415; 74177; 80053; 83690; 84703; 85025; 96374; 96375; 99285; J2270; J2550; Q9967; S0028; J7030

== ENCOUNTER → 2017-03-09 | Outpatient (CLI) | payer OTHER ==
--- NOTE | 2017-03-09 11:48 | RAD ---
Radionuclide gastric emptying study, 03/09/2017: History: Nausea and vomiting The study was performed utilizing a solid test meal radiolabeled with 2.0 mCi of technetium 99m sulfur colloid. Imaging was performed for 1 hour. The time activity curve is relatively flat. There was only minimal gastric emptying during the latter portion of the study. An accurate T1/2 cannot be calculated in this circumstance. IMPRESSION: Markedly delayed gastric emptying.
== END | disposition home or self-care (01) ==
LOC: NM 07:50
PROVIDERS: ATTEND Internal Medicine Gastroenterology
DX: R10.9 Unspecified abdominal pain (principal); R11.2 Nausea with vomiting, unspecified; Z72.0 Tobacco use
CPT/HCPCS: 78264; A9541